=== PATIENT | female | born 1935 | race Caucasian/White ===

== ENCOUNTER → 2016-12-23 | Outpatient (CLI) | payer MEDICARE, BC ==
--- NOTE | 2016-12-23 12:10 | RADRPT ---
PROCEDURE: XR Pelvis 1 View and Left Hip 2 Views. CLINICAL INDICATION: Left hip pain TECHNIQUE: AP low pelvis and AP and frog lateral views of the left hip were performed. COMPARISON: None. FINDINGS: Left hip replacement is identified. Prosthetic components appear in appropriate position and alignm ent. Diffuse osteopenia is seen. The osseous structures appear intact. No destructive bony lesion s are observed. Moderate to severe narrowing of the right hip joint is seen. Vascular calcificatio ns are seen in the thighs. IMPRESSION: Left hip replacement. Prosthetic components appear in appropriate position and alignment. Osteopenia. Moderate to severe osteoarthritis of the right hip. If further characterization is needed CT or MRI could be helpful. If there is high clinical suspicion for traumatic injury, further evaluation with CT should be consi dered. RPTAT: AA .Fabrizio Rodgers MD, Date Time Electronically viewed and signed by .Fabrizio Rodgers MD, on 12/23/2016 12:09 .P/
== END | disposition home or self-care (01) ==
LOC: HKI 12:05
PROVIDERS: ATTEND Orthopaedic Surgery
DX: S72.032D Displaced midcervical fracture of left femur, subsequent encounter for closed fracture with routine healing (principal); X58.XXXD Exposure to other specified factors, subsequent encounter; Z47.1 Aftercare following joint replacement surgery; Z96.642 Presence of left artificial hip joint
CPT/HCPCS: 73502